=== PATIENT | male | born 1995 | race Caucasian/White ===

== ENCOUNTER 2020-10-09 17:01 | Emergency (ER) | payer OTHER | END 2020-10-09 21:27 | disposition left against medical advice (07) | LOC: ER1 17:01 | DX: Z53.21 Procedure and treatment not carried out due to patient leaving prior to being seen by health care provider (principal) ==

== ENCOUNTER 2021-05-27 09:42 | Emergency (ER) | payer OTHER ==
[2021-05-27] MEDS ORDERED: AMOXICILLIN875 MG PO (11:34)
== END 2021-05-27 11:43 | disposition home or self-care (01) ==
LOC: ER1 09:42
DX: J02.0 Streptococcal pharyngitis (principal); Z20.822 Contact with and (suspected) exposure to COVID-19; F17.210 Nicotine dependence, cigarettes, uncomplicated
CPT/HCPCS: 0240U; 87081; 87880; 99283